=== PATIENT | female | born 2000 | race Hispanic/Latino ===

== ENCOUNTER 2023-03-18 16:58 | Emergency (ER) | payer OTHER ==
[~2023-03-18] VITALS: Ht 157.5 cm; Wt 92.5 kg
[2023-03-18] MEDS ORDERED: SOLU-MEDROL 125MG VIAL IVP ONE (18:30)
[2023-03-18] MEDS ORDERED: 0.9%NACL 1000ML 1,000 ML IV ONE (18:30)
[2023-03-18 18:44] VITALS: BP 122/78; PULSE 76; RESP 18; O2SAT 100
== END 2023-03-18 19:31 | disposition home or self-care (01) ==
LOC: EDH 16:58
DX: J45.901 Unspecified asthma with (acute) exacerbation (principal); F90.9 Attention-deficit hyperactivity disorder, unspecified type; Z79.52 Long term (current) use of systemic steroids; Z88.0 Allergy status to penicillin; Z88.1 Allergy status to other antibiotic agents
CPT/HCPCS: 99283; 96374; 96361; J2930